=== PATIENT | male | born 1990 | race Caucasian/White ===

== ENCOUNTER 2019-03-23 09:09 | Emergency (ER) | payer SELFPAY ==
[~2019-03-23] VITALS: Ht 175.3 cm; Wt 126.1 kg
[2019-03-23 09:12] VITALS: BP 138/80
--- NOTE | 2019-03-23 09:17 | NUR ---
PT TO ER BED 4
--- NOTE | 2019-03-23 09:17 | NUR ---
BIB SELF. AAO X4 C/O RT ELBOW PAIN, RED AND SWOLLEN X 4 DAYS. PT DENIES TRAUMA, INJURY TO SITE. PT UNABLE TO STRAIGHTEN RT ARM FULLY DUE TO PAIN. LIMITED ROM TO RT ARM, +CIRCULATION, + SENSATION. RT ELBOW WARM TO TOUCH. PT DENIES FEVER, SOB, N/V. STEADY GAIT. ER TO EVALUATE PT.
--- NOTE | 2019-03-23 09:19 | NUR ---
DR LAZARO AT BEDSIDE FOR PT EVAL
[2019-03-23] MEDS ORDERED: KETOROLAC 60 MG/2 ML VIAL IM ONE (09:25)
[2019-03-23] MEDS ORDERED: DEXAMETHASONE 10 MG/ML VIAL IM ONE (09:25)
--- NOTE | 2019-03-23 09:33 | NUR ---
PT TAKEN TO RADIOLOGY VIA WHEEL CHAIR BY TECH
--- NOTE | 2019-03-23 09:45 | NUR ---
PT STATES NO PAIN AT THIS TIME AND THAT HE IS ABLE TO MOBILIZE HIS RIGHT ARM MORE.
[2019-03-23 10:54] VITALS: BP 132/72
--- NOTE | 2019-03-23 10:55 | NUR ---
Patient discharged with v/s stable. Written and verbal after care instructions given and explained. Patient alert, oriented and verbalized understanding of instructions. Ambulatory with steady gait. All questions addressed prior to discharge. ID band removed. Patient advised to follow up with PMD. Rx of VOLTAREN XR given. Patient educated on indication of medication including possible reaction and side effects. Opportunity to ask questions provided and answered.
== END 2019-03-23 10:55 | disposition home or self-care (01) ==
LOC: MED 09:09
DX: M25.421 Effusion, right elbow (principal)
CPT/HCPCS: 73080; 96372; 99283; J1100; J1885